=== PATIENT | male | born 1990 | race Caucasian/White ===

== ENCOUNTER 2017-11-06 16:26 | Emergency (ER) | payer OTHER ==
[~2017-11-06] VITALS: Ht 182.9 cm; Wt 93.0 kg
[2017-11-06 16:36] VITALS: BP 112/65
[2017-11-06] MEDS ORDERED: LIDOCAINE /MPF 1% VIAL 5 ML VIAL ONE (16:50)
[2017-11-06] MEDS: LIDOCAINE 1% INJ 50 ML MDV IJ ONE (16:59)
== END 2017-11-06 17:15 | disposition home or self-care (01) ==
LOC: ER 16:29
DX: S61.412A Laceration without foreign body of left hand, initial encounter (principal); W26.0XXA Contact with knife, initial encounter; Y93.89 Activity, other specified; Y92.89 Other specified places as the place of occurrence of the external cause; Y99.8 Other external cause status
CPT/HCPCS: A4606; A6402; J3490; Z7610